=== PATIENT | male | born 1990 | race Caucasian/White ===

== ENCOUNTER 2021-11-05 17:11 | Emergency (ER) | payer OTHER, MEDICARE ==
[2021-11-05 18:25] LABS: HEMOGLOBIN 17.1 gm/dl (14.0-17.5); RED BLOOD COUNT 5.76 M/UL (4.20-5.50); WHITE BLOOD COUNT 14.2 K/UL (4.5-11.0)
[2021-11-05 18:43] LABS: BUN/CREATININE RATIO 16 (0-10)
[2021-11-06] MEDS ORDERED: OMNICEF 300 MG300 MG PO (01:25)
[2021-11-06] MEDS ORDERED: ZOFRAN ODT 4 MG4 MG PO (01:25)
[2021-11-06] MEDS ORDERED: ZITHROMAX500 MG PO (01:25)
== END 2021-11-06 01:45 | disposition home or self-care (01) ==
LOC: ER1 17:11
PROVIDERS: Physician Assistant
DX: R10.9 Unspecified abdominal pain (principal); R11.2 Nausea with vomiting, unspecified; J18.9 Pneumonia, unspecified organism; R10.812 Left upper quadrant abdominal tenderness; R10.811 Right upper quadrant abdominal tenderness; R10.814 Left lower quadrant abdominal tenderness; Z20.822 Contact with and (suspected) exposure to COVID-19
CPT/HCPCS: 0240U; 71045; 80053; 82150; 83605; 83690; 85025; 87040; 96374; 96375; 99284; J2405